=== PATIENT | male | born 1995 | race Caucasian/White ===

== ENCOUNTER 2019-12-12 05:19 | Emergency (ER) | payer MEDICAID, OTHER ==
--- NOTE | 2019-12-12 05:51 | CR ---
INDICATION: Cough and shortness of breath. TECHNIQUE: Chest 1 view COMPARISON: None FINDINGS: Cardiovascular and mediastinum: Heart size and vasculature are normal in caliber and appearance. Lungs and pleural spaces: Lungs are clear. No sign of infiltrate or mass. No sign of pleural effusion. No pneumothorax. Bones and soft tissues: No significant findings. IMPRESSION: Normal chest. No sign of pneumonia. Dictated by Bradley Olguin MD @ Dec 12 2019 5:50AM Signed by Dr. Bradley Olguin @ Dec 12 2019 5:51AM
--- NOTE | 2019-12-12 06:36 | EDM.PDOC ---
ED HPI GENERAL MEDICAL PROBLEM - General Chief Complaint: Respiratory Problem Stated Complaint: TROUBLE BREATHING Time Seen by Provider: 12/12/19 05:30 Source of Information: Reports: Patient History Limitations: Reports: No Limitations - History of Present Illness INITIAL COMMENTS - FREE TEXT/NARRATIVE: 24-year-old male presents with worsening dyspnea over the past week, feels like cannot take a deep breath, associated with diffuse body aches, headache, malaise ROS: A 10-point review of systems, other than pertinent positives and negatives as stated per HPI, is otherwise negative Past medical history: No additional pertinent history Past Surgical history: No additional pertinent history Social history: No additional pertinent history Family history: No additional pertinent history PHYSICAL EXAM General: AOx4, GCS = 15, No distress HEENT: dry mucous membrane Neck: supple, no meningismus, no Kernig or Brudzinski Cardiac: S1S2 RRR Respiratory: CTAB, no crackles or rales, no wheezing Abdomen: Soft, nontender, no rebound or guarding, nondistended, no pulsatile mass. Back: nontender Musculoskeletal: NVI distally, no deformity Neuro: No focal deficits, CN 2 - 12 WNL. - Related Data Allergies Allergy/AdvReac Type Severity Reaction Status Date / Time No Known Allergies Allergy Verified 12/12/19 05:30 Home Meds: Home Meds Benzonatate 100 mg PO BID #10 capsule 12/12/19 [Rx] Past Medical History - Past Health History Medical/Surgical History: Denies Medical/Surgical History - Infectious Disease History Infectious Disease History: Reports: Chicken Pox Social & Family History - Family History Family Medical History: Noncontributory - Caffeine Use Caffeine Use: Reports: Coffee, Energy Drinks, Soda - Recreational Drug Use Recreational Drug Use: No ED ROS GENERAL - Review of Systems Review Of Systems: See Below (see dictation) ED EXAM, GENERAL - Physical Exam Exam: See Below (see dictation) Course - Vital Signs Last Recorded V/S: Last Vital Signs Temp 97.5 F 12/12/19 05:30 Pulse 57 L 12/12/19 05:30 Resp 18 12/12/19 05:30 BP 126/68 12/12/19 05:30 Pulse Ox 99 12/12/19 05:30 - Orders/Labs/Meds Orders: Active Orders 24 hr Category Date Time Status CORONAVIRUS COVID-19 PCR PHL Stat Lab 12/12/19 05:35 Received Labs: Laboratory Tests 12/12/19 Range/Units 05:35 SARS CoV-2 RNA Rapid MORE POSITIVE H (NEGATIVE) - Re-Assessments/Exams Free Text/Narrative Re-Assessment/Exam: 12/12/19 06:34 He is currently stable for discharge. I performed a repeat exam and did not appreciate new abnormal findings. He is not hypoxic or tachypneic or in respiratory distress. I advised the patient to return to the ER for reevaluation if symptoms worsened, including fever, worsening pain, or any other worrisome symptoms. I instructed the patient to follow up with their PCP within 2-3 days. MEDICAL DECISION MAKING: I reviewed the patients past medical records, lab and radiographic findings. I discussed the case with the patient. My differential diagnosis included: Covid, pneumonia, ARDS. This patient was evaluated for the symptoms described in the history of present illness. They were evaluated in the context of the global COVID-19 pandemic, which necessitated consideration that the patient might be at risk for infection with the SARS-CoV-2 virus that causes COVID-19. Institutional protocols and algorithms that pertain to the evaluation of patients at risk for COVID-19 are in a state of rapid change based on information released by regulatory bodies including the CDC and federal and state organizations. These policies and algorithms were followed during the patient's care. I wore full PPE, N95, face shield, gown and gloves throughout my evaluation and care of this patient. I recommended home isolation. given home isolation instructions. Patient was in no respiratory distress, not hypoxic, otherwise well appearing. I instructed patient to return immediately for worsening symptoms, sob, chest pain, lightheadedness or other concerns. Patient voiced understanding and questions answered. Departure - Departure Time of Disposition: 06:35 Disposition: Home, Self-Care 01 Condition: Good Clinical Impression: COVID-19 - Discharge Information *PRESCRIPTION DRUG MONITORING PROGRAM REVIEWED*: Not Applicable *COPY OF PRESCRIPTION DRUG MONITORING REPORT IN PATIENT RISHABH: Not Applicable Prescriptions: Benzonatate 100 mg PO BID #10 capsule Instructions: COVID-19 Frequently Asked Questions, COVID-19, COVID-19: How to Protect Yourself and Others - CDC, Prevent the Spread of COVID-19 if You Are Sick - CDC Referrals: PCP,None [Primary Care Provider] - Forms: ED Department Discharge Additional Instructions: The need for follow-up, as well as the timing and circumstances, are variable depending upon the specifics of your emergency department visit. If you don't have a primary care physician on staff, we will provide you with a referral. We always advise you to contact your personal physician following an emergency department visit to inform them of the circumstance of the visit and for follow-up with them and/or the need for any referrals to a consulting specialist. The emergency department will also refer you to a specialist when appropriate. This referral assures that you have the opportunity for follow-up care with a specialist. All of these measure are taken in an effort to provide you with optimal care, which includes your follow-up. Under all circumstances we always encourage you to contact your private physician who remains a resource for coordinating your care. When calling for follow-up care, please make the office aware that this follow-up is from your recent emergency room visit. If for any reason you are refused follow-up, please contact the [facility] Emergency Department at and asked to speak to the emergency department charge nurse. If you do not have a primary care doctor, please follow up with the clinics below within 3-5 days. [facility] - [facility] [address] [place] [id number] [address] Sepsis Event Note (ED) - Evaluation Sepsis Screening Result: No Definite Risk - Focused Exam Vital Signs: Vital Signs Temp Pulse Resp BP Pulse Ox 12/12/19 05:30 97.5 F 57 L 18 126/68 99 - My Orders Last 24 Hours: My Active Orders 12/12/19 05:35 CORONAVIRUS COVID-19 PCR PHL Stat - Assessment/Plan Last 24 Hours: My Active Orders 12/12/19 05:35 CORONAVIRUS COVID-19 PCR PHL Stat
== END 2019-12-12 06:48 | disposition home or self-care (01) ==
LOC: MW.ED 05:19
DX: U07.1 COVID-19 (principal)
CPT/HCPCS: 71045; 71045-26; 99283; 99285-25; U0002

== ENCOUNTER 2020-02-27 15:35 | Emergency (ER) | payer MEDICAID, OTHER ==
--- NOTE | 2020-02-27 15:50 | EDM.PDOC ---
ED HPI GENERAL MEDICAL PROBLEM - General Chief Complaint: Chest Pain Stated Complaint: CHEST PAIN Time Seen by Provider: 02/27/20 15:41 Source of Information: Reports: Patient History Limitations: Reports: No Limitations - History of Present Illness INITIAL COMMENTS - FREE TEXT/NARRATIVE: HISTORY AND PHYSICAL: History of present illness: Patient is a 25-year-old male who presents to the emergency room with complaints of cough and chest pain. He states for the last for 5-7 days he has had a dry nonproductive cough and pain associated with it. He also has the chest pain wit h taking in deep breaths since Sunday. Patient denies any fever, chills, headache, change in vision, syncope or near syncope. Denies any hemoptysis, back pain, shortness of breath. Patient tested positive for COVID-19 on 11/2019. He denies any abdominal pain, nausea, vomiting, diarrhea, constipation or dysuria. Has not noted any blood in urine or stool. Patient has been eating and drinking appropriately. Review of systems: As per history of present illness and below otherwise all systems reviewed and negative. Past medical history: As per history of present illness and as reviewed below otherwise noncontributory. Surgical history: As per history of present illness and as reviewed below otherwise noncontributory. Social history: See social history for further information Family history: As per history of present illness and as reviewed below otherwise noncontributory. Physical exam: General: Well developed and well nourished. Alert and orientated x 3. Nontoxic in appearance and in no acute distress. Vital signs are stable and have been reviewed by me. Nursing notes were reviewed. HEENT: Atraumatic, normocephalic, pupils equal and reactive bilaterally, negative for conjunctival pallor or scleral icterus, mucous membranes moist, TMs normal bilaterally, throat clear, neck supple, nontender, trachea midline. No drooling or trismus noted. No meningeal signs. No hot potato voice noted. Lungs: Clear to auscultation, breath sounds equal bilaterally, chest nontender. Normal work of breathing, no accessory muscles used. Heart: S1S2, regular rate and rhythm without overt murmur Abdomen: Soft, nondistended, nontender. Skin: Intact, warm, dry. No lesions or rashes noted. Hematologic: No petechiae or purpra. Mucosa appropriate color and normal nail bed color and refill. Extremities: Atraumatic, moves all extremities per self without difficulty or deficits, negative for cords or calf pain. Neurovascular unremarkable. Neuro: Awake, alert, oriented. Cranial nerves II through XII unremarkable. Cerebellum unremarkable. Motor and sensory unremarkable throughout. Exam nonfocal. Psychiatric: Mood and affect are appropriate. Normal thought process. Answering questions appropriately. Notes: CXR is unremarkable. Lab work is unremarkable. Due to length of symptoms will treat with [place]. I have talked with the patient about today's findings, in addition to providing specific details for plan of care. Reassessment at the time of disposition demonstrates that the patient is in no acute distress. The patient is stable for discharge, counseling was provided and we discussed in great detail signs and symptoms that would prompt them to return to the Emergency Department. Medication, follow up and supportive care measures were reviewed and discussed. Voices understanding and is agreeable to plan of care. Denies any further questions or concerns at this time. Diagnostics: CBC, CMP, chest x-ray Therapeutics: None Prescription: Tessalone. Raghu Impression: Bronchitis Plan: 1. Today your chest x-ray and lab work is normal. 2. Please take the medications as prescribed. Alternate Tylenol and Ibuprofen as needed for pain. 3. We encourage you to follow up with your primary care provider and/or recommended specialist in the next few days for re-evaluation and further care/management. If your symptoms should worsen, new symptoms develop or any of the signs and symptoms we discussed should arise please return to the emergency room or call 911 (if needed). Definitive disposition and diagnosis as appropriate pending reevaluation and review of above. chest Pain Score (Numeric/FACES): 4 - Related Data Allergies Allergy/AdvReac Type Severity Reaction Status Date / Time No Known Allergies Allergy Verified 12/12/19 05:30 Home Meds: Home Meds Benzonatate 100 mg PO BID #10 capsule 12/12/19 [Rx] Azithromycin [Zithromax] 1 dose PO DAILY 5 Days #6 tab 02/27/20 [Rx] Benzonatate [Tessalon Perle] 100 mg PO TID PRN #20 capsule 02/27/20 [Rx] Past Medical History - Past Health History Medical/Surgical History: Denies Medical/Surgical History - Infectious Disease History Infectious Disease History: Reports: Chicken Pox Social & Family History - Family History Family Medical History: No Pertinent Family History - Caffeine Use Caffeine Use: Reports: Coffee, Energy Drinks, Soda ED ROS GENERAL - Review of Systems Review Of Systems: Comprehensive ROS is negative, except as noted in HPI. ED EXAM, GENERAL - Physical Exam Exam: See Below (See dictation) Course - Vital Signs Last Recorded V/S: Last Vital Signs Temp 97.8 F 02/27/20 15:43 Pulse 85 02/27/20 15:43 Resp 16 02/27/20 15:43 BP 129/87 02/27/20 15:43 Pulse Ox 100 02/27/20 15:43 - Orders/Labs/Meds Orders: Active Orders 24 hr Category Date Time Status EKG Documentation Completion [RC] STAT Care 02/27/20 15:42 Active Labs: Laboratory Tests 02/27/20 02/27/20 Range/Units 15:57 15:57 WBC 6.55 (4.0-11.0) K/uL RBC 5.04 (4.50-5.90) M/uL Hgb 14.7 (13.0-17.0) g/dL Hct 44.1 (38.0-50.0) % MCV 87.5 (80.0-98.0) fL MCH 29.2 (27.0-32.0) pg MCHC 33.3 (31.0-37.0) g/dL RDW Std Deviation 42.9 (28.0-62.0) fl RDW Coeff of Venkata 14 (11.0-15.0) % Plt Count 199 (150-400) K/uL MPV 11.90 (7.40-12.00) fL Neut % (Auto) 62.1 (48.0-80.0) % Lymph % (Auto) 28.4 (16.0-40.0) % [place] % (Auto) 7.3 (0.0-15.0) % Eos % (Auto) 1.7 (0.0-7.0) % Baso % (Auto) 0.5 (0.0-1.5) % Neut # (Auto) 4.1 (1.4-5.7) K/uL Lymph # (Auto) 1.9 (0.6-2.4) K/uL [place] # (Auto) 0.5 (0.0-0.8) K/uL Eos # (Auto) 0.1 (0.0-0.7) K/uL Baso # (Auto) 0.0 (0.0-0.1) K/uL Nucleated RBC % 0.0 /100WBC Nucleated RBCs # 0 K/uL Sodium 139 (136-148) mmol/L Potassium 4.0 (3.5-5.1) mmol/L Chloride 102 (98-107) mmol/L Carbon Dioxide 26.6 (21.0-32.0) mmol/L BUN 17 (7.0-18.0) mg/dL Creatinine 1.2 (0.8-1.3) mg/dL Est Cr Clr Drug Dosing 92.77 mL/min Estimated GFR (MDRD) > 60.0 ml/min Glucose 102 (74-106) mg/dL Calcium 9.6 (8.5-10.1) mg/dL Total Bilirubin 0.7 (0.2-1.0) mg/dL AST 13 L (15-37) IU/L ALT 21 (14-63) IU/L Alkaline Phosphatase 76 (46-116) U/L Total Protein 8.2 (6.4-8.2) g/dL Albumin 4.5 (3.4-5.0) g/dL Globulin 3.7 (2.6-4.0) g/dL Albumin/Globulin Ratio 1.2 (0.9-1.6) Departure - Departure Time of Disposition: 16:36 Disposition: Home, Self-Care 01 Clinical Impression: Bronchitis Prescriptions: Benzonatate [Tessalon Perle] 100 mg PO TID PRN #20 capsule PRN Reason: Cough Azithromycin [Zithromax] 1 dose PO DAILY 5 Days #6 tab Instructions: Upper Respiratory Infection, Adult, [id number] Referrals: PCP,None [Primary Care Provider] - Forms: ED Department Discharge Additional Instructions: The following information is given to patients seen in the emergency department who are being discharged to home. This information is to outline your options for follow-up care. We provide all patients seen in our emergency department with a follow-up referral. The need for follow-up, as well as the timing and circumstances, are variable depending upon the specifics of your emergency department visit. If you don't have a primary care physician on staff, we will provide you with a referral. We always advise you to contact your personal physician following an emergency department visit to inform them of the circumstance of the visit and for follow-up with them and/or the need for any referrals to a consulting specialist. The emergency department will also refer you to a specialist when appropriate. This referral assures that you have the opportunity for follow-up care with a specialist. All of these measure are taken in an effort to provide you with optimal care, which includes your follow-up. Under all circumstances we always encourage you to contact your private physician who remains a resource for coordinating your care. When calling for follow-up care, please make the office aware that this follow-up is from your recent emergency room visit. If for any reason you are refused follow-up, please contact the [facility] Emergency Department at and asked to speak to the emergency department charge nurse. [facility] Primary [facility] [address] [place] [id number] [facility] [address] [place] [id number] Thank you for choosing the [facility] emergency department in [place] for your medical needs today. It was a pleasure caring for you. Today you were seen in the emergency department for chest pain and cough. 1. Today your chest x-ray and lab work is normal. 2. Please take the medications as prescribed. Alternate Tylenol and Ibuprofen as needed for pain. 3. We encourage you to follow up with your primary care provider and/or recommended specialist in the next few days for re-evaluation and further care/management. If your symptoms should worsen, new symptoms develop or any of the signs and symptoms we discussed should arise please return to the emergency room or call 911 (if needed). Sepsis Event Note (ED) - Focused Exam Vital Signs: Vital Signs Temp Pulse Resp BP Pulse Ox 02/27/20 15:43 97.8 F 85 16 129/87 100 - My Orders Last 24 Hours: My Active Orders 02/27/20 15:42 EKG Documentation Completion [RC] STAT - Assessment/Plan Last 24 Hours: My Active Orders 02/27/20 15:42 EKG Documentation Completion [RC] STAT
--- NOTE | 2020-02-27 16:09 | PCM.SN.2 ---
- Free Text/Narrative Note: EKG Time 343pm Rate 76 NSR no SILVERIO
--- NOTE | 2020-02-27 16:21 | CR ---
INDICATION: cough. 2 images sent. prior TECHNIQUE: Chest 2 views. COMPARISON: 12/12/19 FINDINGS: Cardiovascular and mediastinum: Heart size and vasculature are normal in caliber and appearance. Mediastinum is within normal limits. Lungs and pleural spaces: Lungs are clear. No sign of infiltrate or mass. No sign of pleural effusion. No pneumothorax. Bones and soft tissues: No significant findings. IMPRESSION: Unremarkable chest. Dictated by: Duncan Chew MD @ 02/27/2020 16:18:59 (Electronically Signed)
[2020-02-27 16:34] LABS: BLOOD UREA NITROGEN,BUN 17 mg/dL (7.0-18.0); CARBON DIOXIDE,CO2 26.6 mmol/L (21.0-32.0); CHLORIDE,CL 102 mmol/L (98-107); GLUCOSE RANDOM 102 mg/dL (74-106); SODIUM,NA 139 mmol/L (136-148)
== END 2020-02-27 16:35 | disposition home or self-care (01) ==
LOC: MW.ED 15:35
DX: J40 Bronchitis, not specified as acute or chronic (principal)
CPT/HCPCS: 36415; 71046; 71046-26; 80053; 85025; 93005; 93010; 99282; 99285-25

== ENCOUNTER 2021-07-25 14:35 | Emergency (ER) | payer BC ==
[2021-07-25 15:40] LABS: CORONAVIRUS COVID-19 NAA NEGATIVE (NEGATIVE); INFLUENZA A NAA NEGATIVE (NEGATIVE); INFLUENZA B NAA NEGATIVE (NEGATIVE)
[2021-07-25 15:43] LABS: BLOOD UREA NITROGEN,BUN 18 mg/dL (7.0-18.0); CARBON DIOXIDE,CO2 27.6 mmol/L (21.0-32.0); CHLORIDE,CL 101 mmol/L (98-107); GLUCOSE RANDOM 102 mg/dL (74-106); POTASSIUM,K 4.3 mmol/L (3.5-5.1); SODIUM,NA 137 mmol/L (136-148)
== END 2021-07-25 16:09 | disposition home or self-care (01) ==
LOC: MW.ED 14:35
DX: J06.9 Acute upper respiratory infection, unspecified (principal); Z20.822 Contact with and (suspected) exposure to COVID-19
CPT/HCPCS: 0240U; 36415; 71045; 80053; 84484; 85025; 93005; 99284

== ENCOUNTER 2021-09-14 04:13 | Emergency (ER) | payer BC ==
[2021-09-14] MEDS ORDERED: Ketorolac 30 MG/ML SDV IM ONE (05:20)
== END 2021-09-14 06:06 | disposition home or self-care (01) ==
LOC: MW.ED 04:13
DX: R09.1 Pleurisy (principal); Z86.16 Personal history of COVID-19
CPT/HCPCS: 71046; 96372; 99285; J1885

== ENCOUNTER 2021-09-24 17:20 | Emergency (ER) | payer SELFPAY ==
[2021-09-24] MEDS ORDERED: Alum Hydro/Mag Hydro/Simeth XS 15 ML, Lidocaine 2% 5 ML PO ONE ×2 (17:48)
[2021-09-24] MEDS ORDERED: Ketorolac 60 MG/2 ML SDV IM ONE (17:48)
[2021-09-24 18:34] LABS: BLOOD UREA NITROGEN,BUN 18 mg/dL (7.0-18.0); CARBON DIOXIDE,CO2 25.2 mmol/L (21.0-32.0); CHLORIDE,CL 101 mmol/L (98-107); GLUCOSE RANDOM 106 mg/dL (74-106); POTASSIUM,K 4.9 mmol/L (3.5-5.1); SODIUM,NA 134 mmol/L (136-148)
[2021-09-24 18:36] LABS: ESTIMATED GFR 49 mL/min (>60)
== END 2021-09-24 18:52 | disposition home or self-care (01) ==
LOC: MW.ED 17:20
DX: S39.012A Strain of muscle, fascia and tendon of lower back, initial encounter (principal); Z86.16 Personal history of COVID-19
CPT/HCPCS: 36415; 80053; 81003; 85025; 96372; 99283; A9270; J1885

== ENCOUNTER 2021-10-15 | Emergency (ER) | payer SELFPAY ==
[2021-10-15] MEDS ORDERED: Sodium Chloride 0.9% 2.5 ML Syringe FLUSH PRN (03:04)
[2021-10-15] MEDS ORDERED: Sodium Chloride 0.9% 1,000 ML IV ONE (03:04)
[2021-10-15] MEDS ORDERED: Sodium Chloride 0.9% 10 ML Syringe FLUSH PRN (03:04)
[2021-10-15] MEDS ORDERED: Acetaminophen 500 MG Tab PO ONE (03:04)
[2021-10-15] MEDS ORDERED: hydrOXYzine HCl 25 MG Tab PO ONE (03:06)
[2021-10-15 03:50] LABS: CARBON DIOXIDE,CO2 26.2 mmol/L (21.0-32.0)
== END 2021-10-15 05:20 | disposition home or self-care (01) ==
LOC: MW.ED
DX: R10.9 Unspecified abdominal pain (principal); Z86.16 Personal history of COVID-19
CPT/HCPCS: 36415; 80053; 81003; 85025; 96360; 99284; A9270; J3490; J7030

== ENCOUNTER 2021-12-03 01:21 | Emergency (ER) | payer BC ==
[2021-12-03] MEDS ORDERED: Sodium Chloride 0.9% 1,000 ML IV ONE (01:44)
[2021-12-03 02:43] LABS: CARBON DIOXIDE,CO2 27.7 mmol/L (21.0-32.0); POTASSIUM,K 4.1 mmol/L (3.5-5.1)
[2021-12-03] MEDS ORDERED: Ketorolac 30 MG/ML SDV IVPUSH ONE (02:56)
[2021-12-03] MEDS ORDERED: diphenhydrAMINE 50 MG/ML SDV IVPUSH ONE (02:56)
[2021-12-03] MEDS ORDERED: Prochlorperazine 10 MG/2 ML SDV IVPUSH PRN (02:56)
== END 2021-12-03 04:17 | disposition home or self-care (01) ==
LOC: MW.ED 01:21
DX: R42 Dizziness and giddiness (principal); R51.9 Headache, unspecified; Z86.16 Personal history of COVID-19
CPT/HCPCS: 36415; 80048; 85025; 96361; 96374; 96375; 99284; J0780; J1200; J1885; J7030; 99283

== ENCOUNTER 2022-01-25 00:26 | Emergency (ER) | payer BC ==
[2022-01-25] MEDS ORDERED: Ibuprofen 600 MG Tab PO ONE (01:35)
== END 2022-01-25 01:52 | disposition home or self-care (01) ==
LOC: MW.ED 00:26
DX: M25.561 Pain in right knee (principal); Z86.16 Personal history of COVID-19
CPT/HCPCS: 73562; 99283; A9270

== ENCOUNTER 2022-02-01 14:33 | Emergency (ER) | payer BC ==
[2022-02-01 15:48] LABS: CORONAVIRUS COVID-19 NAA NEGATIVE (NEGATIVE); INFLUENZA A NAA NEGATIVE (NEGATIVE); INFLUENZA B NAA NEGATIVE (NEGATIVE); RESPIRATORY SYNCYTIAL VIR NAA NEGATIVE (NEGATIVE)
== END 2022-02-01 16:07 | disposition home or self-care (01) ==
LOC: MW.ED 14:33
DX: S29.012A Strain of muscle and tendon of back wall of thorax, initial encounter (principal); Z20.822 Contact with and (suspected) exposure to COVID-19
CPT/HCPCS: 0241U; 71045; 93005; 99285

== ENCOUNTER 2022-02-26 14:29 | Emergency (ER) | payer SELFPAY ==
[2022-02-26] MEDS ORDERED: Alum Hydro/Mag Hydro/Simeth XS 15 ML, Metoclopramide 5 MG, Lidocaine 2% 5 ML PO ONE ×3 (15:02)
== END 2022-02-26 15:49 | disposition home or self-care (01) ==
LOC: MW.ED 14:29
DX: K21.9 Gastro-esophageal reflux disease without esophagitis (principal); Z79.899 Other long term (current) drug therapy; Z86.16 Personal history of COVID-19
CPT/HCPCS: 93005; 99284; A9270

== ENCOUNTER 2023-02-20 19:54 | Emergency (ER) | payer SELFPAY ==
[2023-02-20] MEDS ORDERED: Ketorolac 30 MG/ML SDV IM STA (20:40)
[2023-02-20] MEDS ORDERED: methylPREDNISolone Sodium Succinate 125 MG/2 ML SDV IM ONE (20:40)
[2023-02-20] MEDS ORDERED: traMADol 50 MG Tab PO ONE (20:42)
== END 2023-02-20 20:59 | disposition home or self-care (01) ==
LOC: MW.ED 19:54
DX: R51.9 Headache, unspecified (principal); Z86.16 Personal history of COVID-19
CPT/HCPCS: 96372; 99283; A9270; J1885; J2930

== ENCOUNTER 2023-07-27 17:22 | Emergency (ER) | payer SELFPAY ==
[2023-07-27] MEDS: Metoclopramide 10 MG/2 ML SDV IVPUSH ONE (18:02)
[2023-07-27] MEDS: Ketorolac 30 MG/ML SDV IVPUSH ONE (18:02)
[2023-07-27] MEDS: Sodium Chloride 0.9% 1,000 ML IV ONE (18:02)
== END 2023-07-27 19:38 | disposition home or self-care (01) ==
LOC: MW.ED 17:22
DX: R51.9 Headache, unspecified (principal)
CPT/HCPCS: 96361; 96374; 96375; 99283; J1885; J2765; J7030; 99284

== ENCOUNTER 2023-08-07 01:35 | Emergency (ER) | payer SELFPAY ==
[2023-08-07] MEDS: Metoclopramide 10 MG/2 ML SDV IVPUSH ONE (01:53)
[2023-08-07] MEDS: Ketorolac 30 MG/ML SDV IVPUSH ONE (01:53)
[2023-08-07] MEDS: Sodium Chloride 0.9% 1,000 ML IV ONE (01:53)
[2023-08-07] MEDS: diphenhydrAMINE 50 MG/ML SDV IVPUSH ONE (01:54)
[2023-08-07] MEDS: Acetaminophen/Butalbital/Caffeine 325-50-40 MG Tab PO ONE (01:57)
[2023-08-07 02:01] LABS: BASOPHILS ABSOLUTE AUTO 0.08 K/uL (0.00-0.20); BASOPHILS PERCENT AUTO 0.8 % (0.0-1.0); EOSINOPHILS ABSOLUTE AUTO 0.28 K/uL (0.00-0.45); EOSINOPHILS PERCENT AUTO 2.7 % (0.0-6.0); HEMOGLOBIN 15.1 g/dL (14.0-18.0); IMMATURE GRAN ABSOLUTE AUTO 0.02 K/uL (0.00-0.05); IMMATURE GRAN PERCENT AUTO 0.2 % (0.0-0.4); LYMPHOCYTES ABSOLUTE AUTO 4.15 K/uL (1.00-4.80); LYMPHOCYTES PERCENT AUTO 40.7 % (24.0-44.0); MEAN CORPUSCULAR HEMOGLOBIN 29.2 pg (28.0-32.0); MEAN CORPUSCULAR HGB CONC 34.3 g/dL (32.0-36.0); MEAN CORPUSCULAR VOLUME 85.1 fL (83.0-99.0); MEAN PLATELET VOLUME 11.8 fL (9.4-12.4); MONOCYTES ABSOLUTE AUTO 0.79 K/uL (0.00-0.80); MONOCYTES PERCENT AUTO 7.8 % (0.0-8.0); NEUTROPHILS ABSOLUTE AUTO 4.87 K/uL (1.80-7.70); NEUTROPHILS PERCENT AUTO 47.8 % (41.0-71.0); PLATELET COUNT,PLT 208 K/uL (150-400); RED BLOOD CELL COUNT 5.17 M/uL (4.52-5.90); WHITE BLOOD CELL COUNT,WBC 10.19 K/uL (3.9-11.3)
[2023-08-07 02:24] LABS: A/G RATIO 0.9 (0.9-1.6); ALBUMIN 3.7 g/dL (3.4-5.0); BILIRUBIN TOTAL 0.3 mg/dL (0.2-1.0); CALCIUM 8.9 mg/dL (8.5-10.1); CARBON DIOXIDE,CO2 24.8 mmol/L (21.0-32.0); CREATININE 1.2 mg/dL (0.8-1.3); EST CRCL DRUG DOSING (CG) 94.43 mL/min; POTASSIUM,K 3.9 mmol/L (3.5-5.1); PROTEIN TOTAL,TP 7.7 g/dL (6.4-8.2)
== END 2023-08-07 03:07 | disposition home or self-care (01) ==
LOC: MW.ED 01:35
DX: R51.9 Headache, unspecified (principal); Z75.8 Other problems related to medical facilities and other health care; Z79.899 Other long term (current) drug therapy
CPT/HCPCS: 36415; 70450; 80053; 83735; 85025; 93005; 96361; 96374; 96375; 99284; A9270; J1200; J1885; J2765; J7030; 93010

== ENCOUNTER 2024-06-14 02:16 | Emergency (ER) | payer BC | END 2024-06-14 04:17 | disposition home or self-care (01) | LOC: MW.ED 02:16 | DX: S89.91XA Unspecified injury of right lower leg, initial encounter (principal); F17.200 Nicotine dependence, unspecified, uncomplicated; X58.XXXA Exposure to other specified factors, initial encounter | CPT/HCPCS: 99282; 99283 ==